=== PATIENT | male | born 1955 | race Caucasian/White ===

== ENCOUNTER 2021-08-20 17:03 | Inpatient (IN) | payer OTHER ==
[~2021-08-20] VITALS: Ht 182.9 cm; Wt 85.4 kg
[2021-08-20 22:29] LABS: Mean Corpuscular Hgb Conc. 32.4 g/dL (32.0-36.0); White Blood Cell 13.5 10^3/uL (4.4-10.8)
[2021-08-20 22:31] LABS: Hematocrit 39.9 % (41.0-53.0); Hemoglobin 12.9 g/dL (13.5-17.5); Mean Corpuscular Volume 80.3 fL (80.0-100.0); Red Blood Cells 4.97 10^6/uL (4.5-5.90); Red Cell Distribution Width 15.2 % (11.8-14.3)
[2021-08-20 22:34] LABS: Basophils % (manual) 0 (0.0-2.0); Blast Cells 0; Metamyelocytes % 0; Myelocytes % 0; Promyelocytes % 0
[2021-08-20 22:47] LABS: Albumin 3.8 g/dL (3.4-5.0); Calcium 9.3 mg/dL (8.5-10.1); Potassium 4.2 mmol/L (3.5-5.1)
[2021-08-20 22:53] LABS: BUN/Creatinine Ratio 16.3; Bilirubin, Total 0.4 mg/dL (0.2-1.0); Total Protein 7.5 g/dL (6.4-8.2)
[2021-08-20 23:11] LABS: Band Neutrophils % (manual) 2; Lymphocytes % (manual) 4 (10.0-50.0); Monocytes % (manual) 7 (0-12)
[2021-08-20 23:12] LABS: Eosinophils % (manual) 15 (0-7); Reactive Lymphocytes 3
[2021-08-20] MEDS ORDERED: PER60TP TOP (23:27)
[2021-08-20] MEDS ORDERED: CEPH500C PO (23:27)
[2021-08-21] MEDS ORDERED: ACETAMINOPHEN 325 MG TAB PO PRN (21:30)
[2021-08-21] MEDS ORDERED: HYDROcodone-ACET 5/325MG TAB PO PRN (21:30)
[2021-08-21] MEDS ORDERED: TEMAZEPAM 15 MG CAP PO PRN (21:30)
[2021-08-21] MEDS ORDERED: ONDANSETRON HCL 4 MG/2 ML VIAL IV PRN (21:30)
[2021-08-21 23:45] VITALS: BP_SYST 144; BP_SYST 160; BP_DIAS 76; BP_DIAS 79
[2021-08-21 23:53] VITALS: BP 162/85
[2021-08-22] MEDS: ATORVASTATIN 20 MG TAB PO SCH ×2 (03:37→22:36)
[2021-08-22 05:00] VITALS: BP 160/79
[2021-08-22 07:07] LABS: Hematocrit 35.3 % (41.0-53.0); Mean Corpuscular Hemoglobin 26.3 pg (28.0-32.0)
[2021-08-22 07:10] LABS: Hemoglobin 11.5 g/dL (13.5-17.5); Mean Corpuscular Hgb Conc. 32.6 g/dL (32.0-36.0); Mean Corpuscular Volume 80.6 fL (80.0-100.0); Red Blood Cells 4.38 10^6/uL (4.5-5.90); Red Cell Distribution Width 15.1 % (11.8-14.3); White Blood Cell 9.9 10^3/uL (4.4-10.8)
[2021-08-22 07:15] LABS: Band Neutrophils % (manual) 0; Basophils % (manual) 0 (0.0-2.0); Blast Cells 0; Metamyelocytes % 0; Myelocytes % 0; Promyelocytes % 0; Reactive Lymphocytes 0
[2021-08-22 07:42] LABS: Eosinophils % (manual) 18 (0-7); Lymphocytes % (manual) 8 (10.0-50.0); Monocytes % (manual) 6 (0-12)
[2021-08-22 08:27] LABS: Potassium 3.7 mmol/L (3.5-5.1)
[2021-08-22 08:31] LABS: BUN/Creatinine Ratio 25.3; Calcium 8.4 mg/dL (8.5-10.1)
[2021-08-22 09:00] VITALS: BP 148/74
[2021-08-22] MEDS ORDERED: PANTOPRAZOLE 40 MG TAB PO SCH (10:00)
[2021-08-22] MEDS: amLODIPine BESYLATE 5 MG TAB PO SCH (10:51)
[2021-08-22] MEDS: ENOXAPARIN SOD 40 MG/0.4 ML SYRINGE SC SCH (10:51)
[2021-08-22] MEDS: VALSARTAN 80 MG TAB PO SCH (10:51)
[2021-08-22] MEDS ORDERED: PERMETHRIN 5 % TOPICAL CREAM 60GM TOP ONE (11:00)
[2021-08-22] MEDS ORDERED: VALS1TAB57 PO (11:06)
[2021-08-22] MEDS ORDERED: ASPI81CH74 PO (11:06)
[2021-08-22] MEDS ORDERED: PER60TP TOP (11:06)
[2021-08-22] MEDS ORDERED: AML5T PO (11:06)
[2021-08-22] MEDS ORDERED: ATOR20TA PO (11:06)
[2021-08-22] MEDS ORDERED: MORPHINE SULFATE INJECTION 2 MG/ML SYRG IV PRN (11:30)
[2021-08-22] MEDS ORDERED: NITROGLYCERIN 0.4 MG SL TAB SL PRN (11:30)
[2021-08-22 13:00] VITALS: BP 164/69
[2021-08-22 14:06] VITALS: BP 146/82
[2021-08-22 17:00] VITALS: BP 124/74
[2021-08-22 22:00] VITALS: BP 116/56
[2021-08-22] MEDS: MUPIROCIN 2% OINT 15gm or 22gm EACHNOSTRI SCH (22:36)
[2021-08-23 05:00] VITALS: BP 122/61
[2021-08-23 09:00] VITALS: BP 147/68
[2021-08-23] MEDS: MUPIROCIN 2% OINT 15gm or 22gm EACHNOSTRI SCH ×2 (10:04→22:23)
[2021-08-23] MEDS: VALSARTAN 80 MG TAB PO SCH (10:04)
[2021-08-23] MEDS: ENOXAPARIN SOD 40 MG/0.4 ML SYRINGE SC SCH (10:05)
[2021-08-23] MEDS: amLODIPine BESYLATE 5 MG TAB PO SCH (10:05)
[2021-08-23 13:00] VITALS: BP 140/69
[2021-08-23 16:51] VITALS: BP 121/62
[2021-08-23 20:00] VITALS: BP 147/68
[2021-08-23 22:00] VITALS: BP 131/66
[2021-08-23] MEDS: ATORVASTATIN 20 MG TAB PO SCH (22:23)
[2021-08-24 09:00] VITALS: BP 128/70
[2021-08-24] MEDS: amLODIPine BESYLATE 5 MG TAB PO SCH (09:23)
[2021-08-24] MEDS: ENOXAPARIN SOD 40 MG/0.4 ML SYRINGE SC SCH (09:23)
[2021-08-24] MEDS: VALSARTAN 80 MG TAB PO SCH (09:23)
[2021-08-24] MEDS: MUPIROCIN 2% OINT 15gm or 22gm EACHNOSTRI SCH (09:24)
[2021-08-24 15:05] VITALS: BP 128/70
== END 2021-08-24 15:30 | disposition hospice, home (50) | DRG 607 ==
LOC: ER 17:03 → EDBD 17:03 → INTOOBSV 08-21 21:20 → OVERFLOW 08-21 21:20 → WEST WING 08-21 23:35 → OBSVTOIN 08-24 09:33
PROVIDERS: ADMIT Nurse Practitioner; ATTEND Hospitalist
DX: B86 Scabies (principal); L03.90 Cellulitis, unspecified; I11.0 Hypertensive heart disease with heart failure; I50.9 Heart failure, unspecified; R62.7 Adult failure to thrive; Z20.822 Contact with and (suspected) exposure to COVID-19; Z86.73 Personal history of transient ischemic attack (TIA), and cerebral infarction without residual deficits; Z88.0 Allergy status to penicillin
CPT/HCPCS: 36415; 71045; 80048; 80053; 83735; 83880; 84484; 85007; 85027; 87081; 93970; G0378